=== PATIENT | male | born 1950 | race Caucasian/White ===

== ENCOUNTER 2023-04-27 09:21 | Emergency (ER) | payer MEDICARE, OTHER ==
[2023-04-27 09:37] VITALS: BP 152/87
[2023-04-27] MEDS ORDERED: ERYTHROMYCIN OPHTH OINT 1 GM TUBE LEFTEYE STA (09:51)
--- NOTE | 2023-04-27 09:51 | ED Physician Documentation ---
PD HPI OPHTHO - Stated complaint Stated Complaint: LT EYE PX - Chief complaint Chief Complaint: Heent - History obtained from History obtained from: Patient (Since last night he has a foreign body irritated sensation in his left eye. Was not doing anything that would have put him at risk for foreign body such as grinding metal or weed eating. His vision is not affected. He does not wear contacts.) PD PAST MEDICAL HISTORY - Past Medical History Past Medical History: Yes Cardiovascular: Hypertension Respiratory: None Endocrine/Autoimmune: Type 2 diabetes GI: None : None HEENT: None Psych: None Musculoskeletal: Osteoarthritis Derm: None - Past Surgical History HEENT: Tonsil/Adenoidectomy Derm: Other - Present Medications Home Medications: Ambulatory Orders Medication Instructions Recorded Confirmed Aspirin [Aspir-Low] 1 tab PO DAILY 09/16/16 09/17/16 Cinnamon Bark [Cinnamon] 1 tab PO DAILY 09/16/16 09/16/16 Garlic 1 tab PO DAILY 09/16/16 09/16/16 Multivitamin [Multivitamins] 1 tab PO DAILY 09/16/16 09/16/16 hydroCHLOROthiazide 1 tab PO DAILY 09/16/16 09/16/16 [Hydrochlorothiazide] lisinopriL [Prinivil] 1 tab PO DAILY 09/16/16 09/16/16 metFORMIN [Glucophage] 1,000 mg PO DAILY 09/16/16 09/16/16 Erythromycin Base [Erythromycin 1 appful OP 5XD 7 Days #1 gm 04/27/23 Ophthalmic Ointment] - Allergies Allergies/Adverse Reactions: Allergies Allergy/AdvReac Type Severity Reaction Status Date / Time phenylbutazone Allergy Rash Verified 04/27/23 09:33 - Social History Does the pt smoke?: No Smoking Status: Never smoker PD ED PE NORMAL - Vitals Vital signs reviewed: Yes - General General: Alert and oriented X 3, No acute distress - HEENT HEENT: PERRL, EOMI, Other (Conjunctival inflammation on the left. Hieu-Pen is 13 on the left. Visual acuity normal per RN. He does have skating rink type fluorescein uptake without identified foreign body in the fornices.) - Neck Neck: Supple, no meningeal sign, No bony TTP - Neuro Neuro: Alert and oriented X 3, Normal speech Results - Vitals Vitals: Vital Signs - 24 hr 04/27/23 09:30 Temperature 36.8 C Heart Rate 72 Respiratory 16 Rate Blood Pressure 152/87 H O2 Saturation 100 Oxygen O2 Source Room air PD Medical Decision Making - ED course ED course: Looks like he has a resolved foreign body with skating rink type corneal abrasions. Departure - Departure Disposition: 01 Home, Self Care Clinical Impression: Corneal abrasion, left Condition: Good Record reviewed to determine appropriate education?: Yes Instructions: ED Eye Injury Corneal Abrasion Prescriptions: Erythromycin Base [Erythromycin Ophthalmic Ointment] 1 appful OP 5XD 7 Days #1 gm Comments: Follow-up with your advertising supervisor if not better by Friday. Return for new or worsening symptoms.
--- OUTSIDE RECORDS SUMMARY | 2023-04-27 09:58 | EXTERNAL MEDICAL SUMMARY RPT | Continuity of Care Document ---
Author Name Unknown Address [address] [place] [address] Phone Organization [facility] Address [address] [place] [address] Phone Problems date description facility 2023-04-24 07:50 Polyneuropathy, [facility]
== END 2023-04-27 10:02 | disposition home or self-care (01) ==
LOC: ED 09:21
DX: S05.02XA Injury of conjunctiva and corneal abrasion without foreign body, left eye, initial encounter (principal); X58.XXXA Exposure to other specified factors, initial encounter; I10 Essential (primary) hypertension; E11.9 Type 2 diabetes mellitus without complications; Z79.84 Long term (current) use of oral hypoglycemic drugs
CPT/HCPCS: 99282; 99283; J3490